=== PATIENT | male | born 1975 | race American Indian/Alaskan Native ===

== ENCOUNTER 2018-05-04 09:07 | Emergency (ER) | payer SELFPAY ==
[2018-05-04 09:22] VITALS: BP 161/105
[2018-05-04] MEDS ORDERED: NORCO 5/325 PO ONE (10:45)
--- NOTE | 2018-05-04 10:56 | Emergency Department Report ---
HPI - General Chief Complaint: Urogenital-Male Time Seen by Provider: 05/04/18 10:22 - HPI HPI: 42-year-old male presents to the emergency department with complaint of prolonged erections. The patient says that he has issues where he wakes up with his normal morning erection but does not go away, sometimes all day. He says that he presented to the emergency department today fully erect but it has since become flaccid but he still has a burning pain to the penis, feels like it is inside. He denies any discharge, bleeding, dysuria, fever. He denies any past medical history. He says he has been to 5 different emergency departments in the past for issues with priapism. He has never seen a urologist. Patient says that he took some Sudafed but did not have any relief. No recent travel or sick contacts at home. ED Past Medical Hx - Past Medical History Previous Medical History?: Yes Additional medical history: priaprism. head injury - Surgical History Past Surgical History?: No - Social History Smoking Status: Current Every Day Smoker Substance Use Type: Alcohol ED Review of Systems ROS: Stated complaint: PRIAPISM Other details as noted in HPI Comment: All other systems reviewed and negative Constitutional: denies: chills, fever Eyes: denies: eye pain, eye discharge, vision change ENT: denies: ear pain, throat pain Respiratory: denies: cough, shortness of breath, wheezing Cardiovascular: denies: chest pain, palpitations Gastrointestinal: denies: abdominal pain, nausea, diarrhea Genitourinary: other (penile pain). denies: dysuria, discharge, testicular pain Musculoskeletal: denies: back pain, joint swelling, arthralgia Skin: denies: rash, lesions Neurological: denies: headache, weakness, paresthesias Physical Exam - Physical Exam Vital Signs: Vital Signs 05/04/18 09:19 Temperature 97.6 F Pulse Rate 77 Respiratory 18 Rate Blood Pressure 161/105 O2 Sat by Pulse 99 Oximetry Physical Exam: GENERAL: The patient is well-developed well-nourished. HENT: Normocephalic. Atraumatic. Patient has moist mucous membranes. EYES: Extraocular motions are intact. NECK: Supple. Trachea is midline. CHEST/LUNGS: Clear to auscultation. There is no respiratory distress noted. HEART/CARDIOVASCULAR: Regular. There is no tachycardia. There is no murmur. ABDOMEN: Abdomen is soft, nontender. Patient has normal bowel sounds. There is no abdominal distention. SKIN: Skin is warm and dry. NEURO: The patient is awake, alert, and oriented. The patient is cooperative. The patient has no focal neurologic deficits. The patient has normal speech and gait. MUSCULOSKELETAL: There is no tenderness or deformity. There is no limitation range of motion. : There is no reproducible tenderness palpation of the penis, scrotum or testicles. There is no swelling, erythema or obvious deformity. ED Course Vital Signs 05/04/18 09:19 Temperature 97.6 F Pulse Rate 77 Respiratory 18 Rate Blood Pressure 161/105 O2 Sat by Pulse 99 Oximetry ED Medical Decision Making - Lab Data Result diagrams: 05/04/18 10:55 05/04/18 10:55 - Medical Decision Making The patient has a history of priapism and says that she has been to a total of 5 different emergency departments for the priapism. He has yet to follow up with a urologist as he says that he does not have any insurance until next month. The patient came into the emergency department with a prolonged erection , however by the time he is back in the main emergency department for my history and physical the patient no longer has an erection. He still has some discomfort that feels like it is inside of the penis but there is no dysuria or discharge. Labs are unremarkable. No urinary tract infection. The patient has been instructed to follow-up with a urologist as soon as possible but return to the emergency Department with any worsening of his symptoms or any acute distress. Critical Care Time: No Critical care attestation.: If time is entered above; I have spent that time in minutes in the direct care of this critically ill patient, excluding procedure time. ED Disposition Clinical Impression: Priapism Disposition: DC-01 TO HOME OR SELFCARE Is pt being admited?: No Condition: Stable Instructions: Priapism (ED) Additional Instructions: Please follow up with Urology without fail. I am giving you a referral for Urology, Dr Campo, to follow up regarding your issues with prolonged erections. Referrals: JACQUELYN CAMPO MD [Staff Physician] - AILYN Forms: Work/School Release Form(ED)
[2018-05-04 11:27] LABS: Basophils # (Auto) 0.1 K/mm3 (0.0-0.1); Basophils % (Auto) 1.3 % (0.0-1.8); Eosinophils # (Auto) 0.1 K/mm3 (0.0-0.4); Eosinophils % (Auto) 1.3 % (0.0-4.3); Hematocrit 43.5 % (35.5-45.6); Hemoglobin 14.9 gm/dl (11.8-15.2); Lymphocytes # (Auto) 1.5 K/mm3 (1.2-5.4); Lymphocytes % (Auto) 21.5 % (13.4-35.0); Mean Corpuscular HGB Conc 34 % (32-34); Mean Corpuscular Hemoglobin 31 pg (28-32); Mean Corpuscular Volume 92 fl (84-94); Monocytes # (Auto) 0.7 K/mm3 (0.0-0.8); Monocytes % (Auto) 9.8 % (0.0-7.3); Platelet Count 269 K/mm3 (140-440); Red Blood Count 4.73 M/mm3 (3.65-5.03); Red Cell Distribution Width 14.2 % (13.2-15.2)
[2018-05-04 11:30] LABS: Bilirubin,Urine NEG (Negative); Blood,Urine NEG (Negative); Color,Urine Straw (Yellow); Protein,Urine <15 mg/dL mg/dL (Negative); Urobilinogen,Urine < 2.0 mg/dL (<2.0)
[2018-05-04 11:45] LABS: BUN/Creatinine Ratio 19; Blood Urea Nitrogen 17 mg/dL (9-20); Hemolysis Index 24
== END 2018-05-04 12:15 | disposition home or self-care (01) ==
LOC: ED 09:07
DX: N48.30 Priapism, unspecified (principal); F17.200 Nicotine dependence, unspecified, uncomplicated; Z88.0 Allergy status to penicillin; Z88.2 Allergy status to sulfonamides
CPT/HCPCS: 36415; 80048; 81001; 85025; 99283

== ENCOUNTER 2018-09-19 11:52 | Emergency (ER) | payer SELFPAY ==
[2018-09-19 12:19] VITALS: BP 190/130
--- NOTE | 2018-09-19 12:34 | Emergency Department Report ---
ED General Adult HPI - General Chief complaint: Urogenital-Male Stated complaint: ERECTION 4 HOURS Time Seen by Provider: 09/19/18 12:31 Source: patient, EMS Mode of arrival: Stretcher Limitations: No Limitations - History of Present Illness Initial comments: 42-year-old male with a history of sickle cell trait and recurrent priapism presents with a prolonged erection. Patient states that after presenting to the emergency department yesterday and having the procedure to achieve detumscence from his priapism patient left from the emergency department. Patient states that he doesn't believe his priapism ever truly resolved and thus presented right back to emergency department. Patient denies any hematuria. Patient is uncomfortable and states the pain is 10 out of 10. - Related Data Home Medications Medication Instructions Recorded Confirmed Last Taken No Known Home Medications [No 09/17/18 09/17/18 Unknown Reported Home Medications] Allergies Allergy/AdvReac Type Severity Reaction Status Date / Time Penicillins Allergy Hives Verified 09/10/18 12:31 Sulfa (Sulfonamide Allergy Hives Verified 09/10/18 12:31 Antibiotics) ED Review of Systems ROS: Stated complaint: ERECTION 4 HOURS Other details as noted in HPI Constitutional: denies: chills, fever Eyes: denies: eye pain, eye discharge, vision change ENT: denies: ear pain, throat pain Respiratory: denies: cough, shortness of breath, wheezing Cardiovascular: denies: chest pain, palpitations Endocrine: no symptoms reported Gastrointestinal: denies: abdominal pain, nausea, diarrhea Genitourinary: other (priapism). denies: urgency, dysuria Musculoskeletal: denies: back pain, joint swelling, arthralgia Skin: denies: rash, lesions Neurological: denies: headache, weakness, paresthesias Psychiatric: denies: anxiety, depression Hematological/Lymphatic: denies: easy bleeding, easy bruising ED Past Medical Hx - Past Medical History Previous Medical History?: Yes Hx Sickle Cell Disease: Yes (sickle cell trait) Additional medical history: priaprism. head injury - Surgical History Past Surgical History?: No - Social History Smoking Status: Never Smoker Substance Use Type: None - Medications Home Medications: Home Medications Medication Instructions Recorded Confirmed Last Taken Type No Known Home Medications [No 09/17/18 09/17/18 Unknown History Reported Home Medications] ED Physical Exam - General Limitations: No Limitations General appearance: alert, other (uncomfortable; obvious pain) - Head Head exam: Present: atraumatic, normocephalic - Eye Eye exam: Present: normal appearance - ENT ENT exam: Present: mucous membranes moist - Neck Neck exam: Present: normal inspection - Respiratory Respiratory exam: Present: normal lung sounds bilaterally. Absent: respiratory distress - Cardiovascular Cardiovascular Exam: Present: regular rate, normal rhythm. Absent: systolic murmur, diastolic murmur, rubs, gallop - GI/Abdominal GI/Abdominal exam: Present: soft, normal bowel sounds - Rectal Rectal exam: Present: deferred - exam: Present: other (priapism present) - Extremities Exam Extremities exam: Present: normal inspection - Back Exam Back exam: Present: normal inspection - Neurological Exam Neurological exam: Present: alert, oriented X3 - Psychiatric Psychiatric exam: Present: normal affect, normal mood - Skin Skin exam: Present: warm, dry, intact, normal color. Absent: rash ED Course Vital Signs 09/19/18 09/19/18 12:14 12:48 Pulse Rate 68 Respiratory 18 20 Rate Blood Pressure 190/130 O2 Sat by Pulse 97 Oximetry - Procedure Description Procedures done: Aspiration of corpus cavernosum. Patient initially was given terbutaline 0.25 mg subcutaneous and then received local anesthesia on the left corpora cavernosum. Patient then received a total of 200 mcg of phenylephrine. Patient achieved detumscence with this procedure. ED Medical Decision Making - Medical Decision Making Patient achieved demtuscence with Phenylephrine therapy and is in no acute distress. Patient monitored for one hour and is comfortable and texting on cell phone and will be discharged to follow up with Urology. - Differential Diagnosis Priapism; Critical care attestation.: If time is entered above; I have spent that time in minutes in the direct care of this critically ill patient, excluding procedure time. ED Disposition Clinical Impression: Priapism Disposition: DC-01 TO HOME OR SELFCARE Is pt being admited?: No Condition: Fair Referrals: PRIMARY CARE, [Primary Care Provider] - 3-5 Days JACQUELYN AGUILA MD [Staff Physician] - 3-5 Days Time of Disposition: 14:00 Print Language: KOREAN
[2018-09-19] MEDS ORDERED: BRETHINE SUB-Q ONE (12:35)
[2018-09-19] MEDS ORDERED: NEO-SYNEPHRINE 1 MG, NACL P/F VIAL (10 ML) 9.9 ML IJ**NOT IV ONE (12:35)
[2018-09-19] MEDS ORDERED: XYLOCAINE 1% 20 mL INFILTRATI ONE (12:35)
[2018-09-19] MEDS ORDERED: MORPHINE IM ONE (12:47)
[2018-09-19] MEDS ORDERED: ZOFRAN ODT PO ONE (12:47)
[2018-09-19] MEDS ORDERED: NEO SYNEPHRINE IV ONE (13:00)
[2018-09-19] MEDS ORDERED: NACL 0.9% IV ONE (13:00)
== END 2018-09-19 15:12 | disposition home or self-care (01) ==
LOC: ED 11:52
DX: N48.30 Priapism, unspecified (principal); D57.3 Sickle-cell trait; Z88.0 Allergy status to penicillin; Z88.2 Allergy status to sulfonamides
CPT/HCPCS: 54220; 96372; 96374; 99283; J2270; J2370; J3105; Q0162

== ENCOUNTER 2022-04-15 08:00 | Emergency (ER) | payer SELFPAY ==
[2022-04-15] MEDS ORDERED: LIDOCAINE (1%) 10 MG/1 ML VIAL 20 ML MDV INFILTRATI ONE (08:14)
[2022-04-15] MEDS ORDERED: PHENYLEPHRINE 1 MG, SODIUM CHLORIDE P/F VIAL 10 ML 9.9 ML IJ**NOT IV NR (08:30)
[2022-04-15] MEDS ORDERED: ONDANSETRON 4 MG/2 ML INJ IV ONE (08:37)
[2022-04-15] MEDS ORDERED: HYDROmorphone 1 MG/1 ML INJ IV ONE ×2 (08:37→09:27)
--- NOTE | 2022-04-15 09:29 | Emergency Department Report ---
ED Male HPI - General Chief complaint: Urogenital-Male Stated complaint: PRIA PRISM Time Seen by Provider: 04/15/22 08:11 Source: patient, EMS Mode of arrival: Stretcher Limitations: No Limitations - History of Present Illness Initial comments: 46-year-old male with a past medical history of sickle cell disease and recurrent) presents from [facility] with priapism for greater than 12 hours. Patient now complains of 10/10 pain and is restless. Pain is worse with palpation. No alleviating factors reported. No history of trauma. Patient is currently voluntary [facility] for psychosis - Related Data Previous Rx's Medication Instructions Recorded Last Taken Type HYDROcodone/APAP 5-325 [Morenci 1 - 2 each PO Q6HR PRN #14 tablet 09/24/18 Unknown Rx 5/325] Allergies Allergy/AdvReac Type Severity Reaction Status Date / Time Penicillins Allergy Hives Verified 09/10/18 12:31 Sulfa (Sulfonamide Allergy Hives Verified 09/10/18 12:31 Antibiotics) ED Review of Systems ROS: Stated complaint: PRIA PRISM Other details as noted in HPI Comment: All other systems reviewed and negative ED Past Medical Hx - Past Medical History Previous Medical History?: Yes Hx Hypertension: No Hx CVA: No Hx Heart Attack/AMI: No Hx Congestive Heart Failure: No Hx Diabetes: No Hx Deep Vein Thrombosis: No Hx Pulmonary Embolism: No Hx GERD: No Hx Liver Disease: No Hx Renal Disease: No Hx of Cancer: No Hx Sickle Cell Disease: Yes (sickle cell trait) Hx Arthritis: No Hx Headaches / Migraines: No Hx Seizures: No Hx Kidney Stones: No Hx Psychiatric Treatment: No Hx Asthma: No Hx COPD: No Hx Tuberculosis: No Hx Dementia: No Hx HIV: No Additional medical history: priaprism. TBI - Surgical History Past Surgical History?: No Hx Coronary Stent: No Hx Open Heart Surgery: No Hx Pacemaker: No Hx Internal Defibrillator: No Hx Cholecystectomy: No Hx Appendectomy: No Hx Breast Surgery: No - Social History Smoking Status: Never Smoker - Medications Home Medications: Home Medications Medication Instructions Recorded Confirmed Last Taken Type HYDROcodone/APAP 5-325 [Morenci 1 - 2 each PO Q6HR PRN #14 tablet 09/24/18 Unknown Rx 5/325] ED Physical Exam - General Limitations: No Limitations - Other Other exam information: General: Acute distress secondary to pain Head: Atraumatic Eyes: normal appearance ENT: Moist mucous membranes Neck: Normal appearance, no midline tenderness Chest: Clear to auscultation bilaterally CV: Regular rate and rhythm Abdomen: Soft, normal bowel sounds, nontender, nondistended, no rebound or guarding : Circumcised male with priapsm with tenderness to light palpation Back: Normal inspection Extremity: Normal inspection, full range of motion Neuro: Alert O x 3, no facial asymmetry, speech clear, no gross motor sensory deficit Psych: Appropriate behavior Skin: No rash ED Course Vital Signs 04/15/22 04/15/22 04/15/22 08:05 08:27 08:43 Temperature Pulse Rate 92 H 74 84 Respiratory 18 22 22 Rate Blood Pressure 151/115 146/103 [Left] O2 Sat by Pulse 99 100 100 Oximetry 04/15/22 04/15/22 09:30 11:54 Temperature 97.8 F Pulse Rate 61 60 Respiratory 20 22 Rate Blood Pressure 144/87 147/78 [Left] O2 Sat by Pulse 100 100 Oximetry - Reevaluation(s) Reevaluation #1: 04/15/22 11:33 Full detumescence at this time patient in no acute distress - Penile Procedure Consent Obtained: verbal consent Time Out Performed: Yes Indication: priapism management Local Anesthesia Used: Lidocaine 1% without EPI Amount of Anesthesia Used (mls): 4 Priapism Management: aspiration Complications: none Patient Tolerated Procedure: well Additional Comments: 100 mL of dark blood aspirated from the penis with improvement in pain and partial detumescence Injected with phenylephrine 500 mcg Coban pressure dressing applied to prevent postinjection hematoma ED Medical Decision Making - Medical Decision Making 46-year-old male with sickle cell disease presents to the hospital with recurrent priapism. Successful detumescence after aspiration of blood and injection of phenylephrine. Patient will be discharged back to [facility] Critical Care Time: No Critical care attestation.: If time is entered above; I have spent that time in minutes in the direct care of this critically ill patient, excluding procedure time. ED Disposition Clinical Impression: Priapism due to sickle cell disease Disposition: [address] [place] [address] Is pt being admited?: No Does the pt Need Aspirin: No Condition: Stable Instructions: Priapism Additional Instructions: Follow-up with your doctor or doctor/clinic provided. Return if symptoms worsen as indicated by your discharge instructions. Referrals: PRIMARY CARE, [Primary Care Provider] - 3-5 Days MATTEO JADE MD [Staff Physician] - 3-5 Days (Urologist) ERICH PEREIRA MD [Referring] - 3-5 Days (Hematology) Time of Disposition: 11:36
[2022-04-15 11:55] VITALS: BP 147/78
[2022-04-15] MEDS ORDERED: TERBUTALINE 1 MG/1 ML INJ SUB-Q SCH (12:00)
== END 2022-04-15 12:35 ==
LOC: ED 08:00
DX: N48.30 Priapism, unspecified (principal); Z88.0 Allergy status to penicillin; Z88.2 Allergy status to sulfonamides
CPT/HCPCS: 54220; 96374; 96375; 96376; 99283; J1170; J2370; J2405

== ENCOUNTER 2022-04-18 07:42 | Emergency (ER) | payer SELFPAY ==
[2022-04-18] MEDS ORDERED: LORazepam 2 MG/ML VIAL IV ONE (08:03)
[2022-04-18] MEDS ORDERED: MORPHINE 2 MG/1 ML INJ IV ONE (08:03)
--- NOTE | 2022-04-18 08:15 | Emergency Department Report ---
<NISA LAINEZ - Last Filed: 04/18/22 16:36> ED Male HPI - General Chief complaint: Urogenital-Male Stated complaint: ERECTION SINCE 04/17/22 @ 2200 Time Seen by Provider: 04/18/22 07:58 - Related Data Previous Rx's Medication Instructions Recorded Last Taken Type HYDROcodone/APAP 5-325 [Printer 1 - 2 each PO Q6HR PRN #14 tablet 09/24/18 Unknown Rx 5/325] Allergies Allergy/AdvReac Type Severity Reaction Status Date / Time Penicillins Allergy Hives Verified 04/18/22 07:59 Sulfa (Sulfonamide Allergy Hives Verified 04/18/22 07:59 Antibiotics) ED Past Medical Hx - Medications Home Medications: Home Medications Medication Instructions Recorded Confirmed Last Taken Type HYDROcodone/APAP 5-325 [Printer 1 - 2 each PO Q6HR PRN #14 tablet 09/24/18 Unknown Rx 5/325] ED Course - Reevaluation(s) Reevaluation #2: 04/18/22 16:38 I have seen the patient after the procedure and according to the patient the penis has become flaccid which is consistent with my physical examination. Patient was able to make follow-up appoint with medical provider to be seen within 3 to 5 days. ED Disposition Clinical Impression: Priapism due to disease classified elsewhere, Priapism due to sickle cell disease, Priapism, unspecified Disposition: 01 HOME / SELF CARE / HOMELESS Is pt being admited?: No Does the pt Need Aspirin: No Condition: Stable Referrals: ALFREDO LINDO MD [Primary Care Provider] - 3-5 Days Time of Disposition: 16:37 <ULICES GARZA - Last Filed: 04/19/22 06:47> ED Male HPI - General Source: patient, EMS Mode of arrival: Ambulatory Limitations: No Limitations - History of Present Illness Initial comments: 46-year-old Afro-[place] male with a history of sickle cell recurrent priapism who presents with penile pain and erection that started last night all resolved. No fever or chills reported. Patient also denied any use of erectile dysfunction medication. Patient rated his pain as 10/10 in severity. No other modifying or associated factors reported. ED Review of Systems ROS: Stated complaint: ERECTION SINCE 04/17/22 @ 2200 Other details as noted in HPI Comment: All other systems reviewed and negative Genitourinary: other (Farideh pain and swelling) ED Past Medical Hx - Past Medical History Hx Hypertension: No Hx CVA: No Hx Heart Attack/AMI: No Hx Congestive Heart Failure: No Hx Diabetes: No Hx Deep Vein Thrombosis: No Hx Pulmonary Embolism: No Hx GERD: No Hx Liver Disease: No Hx Renal Disease: No Hx Sickle Cell Disease: Yes (sickle cell trait) Hx Arthritis: No Hx Headaches / Migraines: No Hx Seizures: No Hx Kidney Stones: No Hx Psychiatric Treatment: No Hx Asthma: No Hx COPD: No Hx Tuberculosis: No Hx Dementia: No Hx HIV: No Additional medical history: priaprism. TBI - Surgical History Hx Coronary Stent: No Hx Open Heart Surgery: No Hx Pacemaker: No Hx Internal Defibrillator: No Hx Cholecystectomy: No Hx Appendectomy: No Hx Breast Surgery: No - Social History Smoking Status: Never Smoker ED Physical Exam - General Limitations: No Limitations General appearance: alert, anxious, in distress (Due to. Patient) - ENT ENT exam: Present: mucous membranes dry - Neck Neck exam: Present: full ROM - Respiratory Respiratory exam: Present: normal lung sounds bilaterally. Absent: respiratory distress, accessory muscle use - Cardiovascular Cardiovascular Exam: Present: regular rate, normal rhythm, normal heart sounds - GI/Abdominal GI/Abdominal exam: Present: soft, normal bowel sounds. Absent: distended, tenderness - exam: Present: other (Priapism and penile tenderness) - Back Exam Back exam: Absent: tenderness - Neurological Exam Neurological exam: Present: alert, oriented X3 - Psychiatric Psychiatric exam: Present: agitated, anxious - Skin Skin exam: Present: warm, intact ED Course Vital Signs 04/18/22 04/18/22 04/18/22 07:43 08:15 08:36 Temperature 97.6 F Pulse Rate 84 Respiratory 18 20 Rate Blood Pressure Blood Pressure 149/94 186/116 [Right] O2 Sat by Pulse 98 98 100 Oximetry 04/18/22 04/18/22 04/18/22 08:54 08:55 09:01 Temperature Pulse Rate Respiratory Rate Blood Pressure 216/128 216/128 Blood Pressure [Right] O2 Sat by Pulse 98 100 99 Oximetry 04/18/22 04/18/22 04/18/22 09:05 09:11 09:15 Temperature Pulse Rate Respiratory Rate Blood Pressure 216/128 216/128 216/128 Blood Pressure [Right] O2 Sat by Pulse 97 97 97 Oximetry 04/18/22 04/18/22 04/18/22 09:21 09:25 09:31 Temperature Pulse Rate Respiratory Rate Blood Pressure 216/128 216/128 216/128 Blood Pressure [Right] O2 Sat by Pulse 97 97 97 Oximetry 04/18/22 04/18/22 04/18/22 09:55 12:15 12:21 Temperature Pulse Rate Respiratory Rate Blood Pressure 153/95 156/93 156/93 Blood Pressure [Right] O2 Sat by Pulse 97 98 98 Oximetry 04/18/22 04/18/22 04/18/22 12:25 12:31 12:35 Temperature Pulse Rate Respiratory Rate Blood Pressure 156/93 156/93 156/93 Blood Pressure [Right] O2 Sat by Pulse 98 97 99 Oximetry 04/18/22 04/18/22 04/18/22 12:41 12:45 12:51 Temperature Pulse Rate Respiratory Rate Blood Pressure 156/93 156/93 161/92 Blood Pressure [Right] O2 Sat by Pulse 97 98 96 Oximetry 04/18/22 04/18/22 04/18/22 12:55 13:01 13:05 Temperature Pulse Rate Respiratory Rate Blood Pressure 161/92 161/92 161/92 Blood Pressure [Right] O2 Sat by Pulse 98 98 98 Oximetry 04/18/22 04/18/22 04/18/22 13:11 13:15 13:21 Temperature Pulse Rate Respiratory Rate Blood Pressure 161/92 161/92 161/92 Blood Pressure [Right] O2 Sat by Pulse 98 98 98 Oximetry 04/18/22 04/18/22 04/18/22 13:25 13:31 13:35 Temperature Pulse Rate Respiratory Rate Blood Pressure 161/92 161/92 161/92 Blood Pressure [Right] O2 Sat by Pulse 98 98 98 Oximetry 04/18/22 04/18/22 04/18/22 13:41 13:45 13:51 Temperature Pulse Rate Respiratory Rate Blood Pressure 161/92 161/92 149/91 Blood Pressure [Right] O2 Sat by Pulse 98 97 98 Oximetry 04/18/22 04/18/22 04/18/22 13:55 14:01 14:05 Temperature Pulse Rate Respiratory Rate Blood Pressure 149/91 149/91 149/91 Blood Pressure [Right] O2 Sat by Pulse 98 99 98 Oximetry 04/18/22 04/18/22 04/18/22 14:11 14:15 14:21 Temperature Pulse Rate Respiratory Rate Blood Pressure 149/91 149/91 149/91 Blood Pressure [Right] O2 Sat by Pulse 98 97 98 Oximetry 04/18/22 04/18/22 04/18/22 14:25 14:31 14:35 Temperature Pulse Rate Respiratory Rate Blood Pressure 149/91 149/91 149/91 Blood Pressure [Right] O2 Sat by Pulse 98 97 99 Oximetry 04/18/22 04/18/22 04/18/22 14:41 14:45 14:51 Temperature Pulse Rate Respiratory Rate Blood Pressure 161/92 161/92 155/106 Blood Pressure [Right] O2 Sat by Pulse 99 97 98 Oximetry 04/18/22 04/18/22 04/18/22 14:55 15:01 15:05 Temperature Pulse Rate Respiratory Rate Blood Pressure 155/106 155/106 155/106 Blood Pressure [Right] O2 Sat by Pulse 98 99 99 Oximetry 04/18/22 04/18/22 04/18/22 15:11 15:15 15:21 Temperature Pulse Rate Respiratory Rate Blood Pressure 155/106 155/106 155/106 Blood Pressure [Right] O2 Sat by Pulse 99 98 98 Oximetry 04/18/22 04/18/22 04/18/22 15:25 15:31 15:35 Temperature Pulse Rate Respiratory Rate Blood Pressure 155/106 155/106 155/106 Blood Pressure [Right] O2 Sat by Pulse 98 98 98 Oximetry 04/18/22 04/18/22 04/18/22 15:41 15:45 15:51 Temperature Pulse Rate Respiratory Rate Blood Pressure 155/106 155/106 155/106 Blood Pressure [Right] O2 Sat by Pulse 97 97 98 Oximetry 04/18/22 15:55 Temperature Pulse Rate Respiratory Rate Blood Pressure 155/106 Blood Pressure [Right] O2 Sat by Pulse 98 Oximetry - Reevaluation(s) Reevaluation #1: 04/18/22 08:12 here with recurrent priampism and with history of sickle cell disease--pt requested for IV medication trial first before aspiration-- so given morphine 2 mg Iv x 1 and Ativan 2 mg IV x 1 given while waiting for ordered phenylepherin for the pharmacy to bring it-- - Penile Procedure Consent Obtained: verbal consent Time Out Performed: Yes Indication: priapism management Procedural Sedation: No (given dilaudid and morphine with ativan ) Sedation/Analgesia: benzodiazepines Local Anesthesia Used: Local Injection Amount of Anesthesia Used (mls): 4 Reduction of Paraphimosis: manual pressure Priapism Management: aspiration, phenylephrine injection Complications: none Patient Tolerated Procedure: no complications, other (noted with [facility] detumescence --) Additional Comments: about 50 cc blood aspirated with 5 x 10 cc syringe--dark red blood Critical care attestation.: If time is entered above; I have spent that time in minutes in the direct care of this critically ill patient, excluding procedure time. ED Disposition Does the pt Need Aspirin: No
[2022-04-18] MEDS ORDERED: PHENYLEPHRINE 1 MG, SODIUM CHLORIDE P/F VIAL 10 ML 9.9 ML IJ**NOT IV ONE ×2 (08:30→15:00)
[2022-04-18] MEDS ORDERED: HYDROmorphone 1 MG/1 ML INJ IV ONE ×2 (08:57→15:20)
[2022-04-18] MEDS ORDERED: PHENYLEPHRINE 1 MG, SODIUM CHLORIDE P/F VIAL 10 ML 9.9 ML IJ**NOT IV NR (11:00)
[2022-04-18] MEDS ORDERED: PHENYLEPHRINE 10 MG/1 ML INJ SDV IV ONE (13:15)
[2022-04-18] MEDS ORDERED: LIDOCAINE (1%) 10 MG/1 ML VIAL 20 ML MDV INFILTRATI ONE (15:19)
[2022-04-18 16:01] VITALS: BP 155/106
== END 2022-04-18 17:04 | disposition home or self-care (01) ==
LOC: ED 07:42
DX: N48.39 Other priapism (principal); Z88.0 Allergy status to penicillin; Z88.1 Allergy status to other antibiotic agents
CPT/HCPCS: 54220; 96374; 96375; 96376; 99283; J1170; J2060; J2270; J2370